=== PATIENT | male | born 1935 | race Caucasian/White ===

== ENCOUNTER 2021-01-18 17:33 | Emergency (ER) | payer MEDICARE, OTHER ==
[~2021-01-18] VITALS: Ht 165.1 cm; Wt 109.0 kg
[2021-01-18 17:43] VITALS: BP 153/58
--- NOTE | 2021-01-18 17:51 | PHYS DOC ---
Past History Alcohol Use: None (JUDE NASCIMENTO APRN) General Adult EDM: Chief Complaint: LACERATION/AVULSION HPI: HPI: Patient is an 85-year-old male who presents to the ER following a fall that occurred 2 hours ago. Patient reports that he was walking through his doorway when he lost his balance and fell back hitting his head on the door frame. Patient denies any loss of consciousness. He is complaining of a mild ache to the top of his head. He is unsure when his last tetanus shot was. (JUDE NASCIMENTO APRN) Review of Systems: Review of Systems: 14 body systems of the review of systems have been reviewed. See HPI for pertinent positive and negative responses, otherwise all other systems are negative, nonpertinent or noncontributory (JUDE NASCIMENTO APRN) Allergies: Allergies: Allergies Coded Allergies Type Severity Reaction Last Updated Verified No Known Drug Allergies 01/18/21 No (JUDE NASCIMENTO APRN) Physical Exam: PE: Constitutional: Well developed, well nourished, no acute distress, non-toxic appearance. [] HENT: Normocephalic, bilateral external ears normal, oropharynx moist, no oral exudates, nose normal, 4 cm skin tear noted to the top of patient's head, laceration not suturable. [] Eyes: PERRL, EOMI, conjunctiva normal, no discharge. [] Neck: Normal range of motion, no bony spinal tenderness, supple, no stridor. [] Cardiovascular: Normal peripheral perfusion Lungs & Thorax: Normal work of breathing, no tachypnea Abdomen: Bowel sounds normal, soft, no tenderness, no masses, no pulsatile masses. [] Skin: Warm, dry, no erythema, no rash. [] Back: No tenderness, no CVA tenderness. [] Extremities: No tenderness, no cyanosis, no clubbing, ROM intact, no edema. [] Neurologic: Alert and oriented X 3, normal motor function, normal sensory function, no focal deficits noted. [] Psychologic: Affect normal, judgement normal, mood normal. [] (JUDE NASCIMENTO APRN) EKG: EKG: [] (JUDE NASCIMENTO APRN) Radiology/Procedures: Radiology/Procedures: PROCEDURE: CT HEAD AND CERVICAL SPINE WO CT head without contrast. CT cervical spine without contrast. PQRS statement: CT scans at this facility use dose reduction including either automated exposure control, iterative reconstructions, and /or weight based radiation dosing via mA and kV modification when appropriate to reduce radiation dose to as low as reasonably achievable. HISTORY: Fall, head injury, scalp laceration at the vertex, pain. CT head findings: There is mild generalized brain atrophy. Cerebral periventricular white matter hypoattenuation presumably represents changes of chronic microvascular ischemic disease. No intracranial hemorrhage, mass, hydrocephalus, extra-axial fluid collections or infarction. Orbits, mastoids and bones are unremarkable. IMPRESSION: No acute intracranial abnormality. CT cervical spine findings: Cranial cervical junction intact. Cervical vertebral body height and alignment intact. No fracture of the cervical spine. 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 Imaged lung apices and paraspinal tissues are unremarkable. IMPRESSION: No acute osseous injury of the cervical spine. Cervical disc disease as described above. Electronically signed by: Cindy De La Torre MD (01/18/2021 6:10 PM) [id number] DICTATED AND SIGNED BY: CINDY DE LA TORRE MD DATE: 01/18/211802 CC: MIKE SEGURA MD; JUDE NASCIMENTO APRN ~MTH0 0 [] (JUDE NASCIMENTO APRN) Heart Score: C/O Chest Pain: No Risk Factors: Risk Factors: DM, Current or recent (<one month) smoker, HTN, HLP, family history of CAD, obesity. Risk Scores: Score 0 - 3: 2.5% MACE over next 6 weeks - Discharge Home Score 4 - 6: 20.3% MACE over next 6 weeks - Admit for Clinical Observation Score 7 - 10: 72.7% MACE over next 6 weeks - Early Invasive Strategies (JUDE NASCIMENTO APRN) Course & Med Decision Making: Course & Med Decision Making Pertinent Labs and Imaging studies reviewed. (See chart for details) Patient is a 85-year-old male being seen in the ER for head injury following a fall. Patient reports that he was walking through a doorway lost his balance and fell backwards hitting his head on the door frame. A CT scan was performed of his head and neck and it was negative for any acute findings. Patient's tetanus was updated in the ER. He had a skin tear noted to the top of his head. Wound was cleansed and dressing placed. No laceration repair required. I discussed with patient all findings and diagnostic testing as well as the need to follow-up with PCP for further evaluation and treatment or return to the ER if any new or worsening symptoms. Strict return precautions were also discussed at length. Patient voiced understanding and agreement with the plan. Patient is hemodynamically stable at the time of disposition. (JUDE NASCIMENTO APRN) Dragon Disclaimer: Dragon Disclaimer: This electronic medical record was generated, in whole or in part, using a voice recognition dictation system. (JUDE NASCIMENTO APRN) Attending Co-Sign The patient was seen and interviewed as well as examined at the bedside. The chart was reviewed. The case was discussed. Agree with the plan of care. (ISREAL DSOUZA DO) Departure Departure: Impression: Primary Impression: Fall Qualified Codes: W19.XXXA - Unspecified fall, initial encounter Disposition: HOME / SELF CARE / HOMELESS Condition: GOOD Referrals: MIKE SEGURA MD (PCP) Patient Instructions: Head Injury, Adult, Skin Tear Care Additional Instructions: You were seen in the ER today following a head injury. A CT scan was performed of your head neck and it was negative for any acute findings. Your tetanus was updated in the ER. A dressing was placed on your skin tear. Please keep this area clean and dry and keep dressings in place. Monitor your skin tear for any signs of infection which include redness, warmth, swelling, or drainage. You can take Tylenol/ibuprofen for pain at home. You can also apply ice to the top of your head to help with swelling. Follow-up with your primary care provider tomorrow regarding your ER visit. Return to the ER if you develop worsening of your head pain, intractable nausea or vomiting, weakness, vision changes, confusion, speech changes or any new or worsening concerns. EMERGENCY DEPARTMENT GENERAL DISCHARGE INSTRUCTIONS Thank you for coming to [facility] (ED) today and trusting us with you care. We trust that you had a positivie experience in our Emergency Department. If you wish to speak to the department management, you may call the director at [phone]. YOUR FOLLOW UP INSTRUCTIONS ARE FOLLOWS: 1. Do you have a private Doctor? If you do not have a private doctor, please ask for a resource list of physicians or clinics that may be able to assist you with follow up care. 2. The Emergency Physician has interpreted your x-rays. The X-Ray specialist will also review them. If there is a change in the findings, you will be notified in 48 hours when at all possible. 3. A lab test or culture has been done, your results will be reviewed and you will be notified if you need a change in treatment. ADDITIONAL INSTRUCTIONS AND INFORMATION: 1. Your care today has been supervised by a physician who is specially trained in emergency care. Many problems require more than one evaluation for a complete diagnosis and treatment. We recommend that you schedule your follow up appointment as recommended to ensure complete treatment of you illness or injury. If you are unable to obtain follow up care and continue to have a problem, or if your condition worsens, we recommend that you return to the ED. 2. We are not able to safely determine your condition over the phone nor are we able to give sound medical advice over the phone. For these safety reasons, if you call for medical advice we will ask you to come to the ED for further evaluation. 3. If you have any questions regarding these discharge instructions please call the ED at [phone]. SAFETY INFORMATION: In the interest of safety, wellness, and injury prevention; we encourage you to wear your sealbelt, if you smoke; quite smoking, and we encourage family to use a protective helmet for bicycling and other sporting events that present an increased risk for head injury. IF YOUR SYMPTOMS WORSEN OR NEW SYMPTOMS DEVELOP, OR YOU HAVE CONCERNS ABOUT YOUR CONDITION; OR IF YOUR CONDITION WORSENS WHILE YOU ARE WAITING FOR YOUR FOLLOW UP APPOINTMENT; EITHER CONTACT YOUR PRIMARY CARE DOCTOR, THE PHYSICIAN WHOSE NAME AND NUMBER YOU WERE GIVEN, OR RETURN TO THE ED IMMEDIATELY. JUDE NASCIMENTO APRN Jan 18, 2021 17:51 ISREAL DSOUZA DO Jan 19, 2021 05:52
[2021-01-18] MEDS ORDERED: DIPH,PERTUSS(ACELL),TET VAC/PF 0.5 ML SYRINGE. VAX IM ONE (18:00)
--- NOTE | 2021-01-18 18:12 | RAD ---
CT head without contrast. CT cervical spine without contrast. PQRS statement: CT scans at this facility use dose reduction including either automated exposure cont rol, iterative reconstructions, and /or weight based radiation dosing via mA and kV modification when appropriate to reduce radiation dose to as low as reasonably achievable. HISTORY: Fall, head injury, scalp laceration at the vertex, pain. CT head findings: There is mild generalized brain atrophy. Cerebral periventricular white matter hypo attenuation presumably represents changes of chronic microvascular ischemic disease. No intracranial hemorrhage, mass, hydrocephalus, extra-axial fluid collections or infarction. Orbits, mastoids and eula sundeep are unremarkable. IMPRESSION: No acute intracranial abnormality. CT cervical spine findings: Cranial cervical junction intact. Cervical vertebral body height and alig nment intact. No fracture of the cervical spine. Multilevel disc height loss and disc osteophytes and uncovertebral and facet spurring, there are also soft disc protrusions, most notable at least at C3- C4 and C4-C5, these findings contribute to multilevel spinal canal and neural foraminal stenoses whic h are moderate to severe at several levels. Imaged lung apices and paraspinal tissues are unremarkabl e. IMPRESSION: No acute osseous injury of the cervical spine. Cervical disc disease as described above. Electronically signed by: Dandre De La Torre MD (01/18/2021 6:10 PM) [id number]
== END 2021-01-18 18:42 | disposition home or self-care (01) ==
LOC: ER 17:33
DX: S01.01XA Laceration without foreign body of scalp, initial encounter (principal); W18.39XA Other fall on same level, initial encounter; Y93.01 Activity, walking, marching and hiking; Y92.89 Other specified places as the place of occurrence of the external cause; Y99.8 Other external cause status
CPT/HCPCS: 70450; 72125; 90471; 90715; 99285